=== PATIENT | male | born 1945 ===

== ENCOUNTER 2017-08-17 09:15 | Emergency (ER) | payer MEDICAID, MEDICARE, OTHER ==
[2017-08-17 09:22] VITALS: BP 120/89; PULSE 89; RESP 21; TEMP 97.5; O2SAT 97
--- NOTE | 2017-08-17 10:27 | ED PDOC ---
HPI: Skin/Bite Injury Time Seen by Provider: 08/17/17 09:47 Chief Complaint (Nursing): Abnormal Skin Integrity Chief Complaint (Provider): Rash History Per: Patient History/Exam Limitations: no limitations Additional Complaint(s): Pt reports rash behind R lower leg X 3 days, no itching, no pain, no trauma, no paresthesias. Denies fever. Past Medical History Reviewed: Nursing Documentation, Vital Signs Vital Signs: Last Vital Signs Temp 97.5 F L 08/17/17 09:22 Pulse 89 08/17/17 09:22 Resp 21 08/17/17 09:22 BP 120/89 08/17/17 09:22 Pulse Ox 97 08/17/17 09:22 - Medical History PMH: Diabetes - Family History Family History: States: Unknown Family Hx - Social History Current smoker - smoking cessation education provided: No Alcohol: None - Home Medications Home Medications: Ambulatory Orders Medication Instructions Recorded Hydrocortisone 1% Cream [Cortizone 1 apful TP BID PRN #1 tube 08/17/17 1% Cream] - Allergies Allergies/Adverse Reactions: Allergies Allergy/AdvReac Type Severity Reaction Status Date / Time No Known Allergies Allergy Verified 08/17/17 09:42 Review of Systems Constitutional: Negative for: Fever, Chills Musculoskeletal: Negative for: Leg Pain Skin: Positive for: Rash. Negative for: Lesions, Bruising Physical Exam - Reviewed Nursing Documentation Reviewed: Yes Vital Signs Reviewed: Yes - Physical Exam Appears: Positive for: Well, No Acute Distress Skin: Positive for: Normal Color, Warm, Dry Extremity: Positive for: Normal ROM, Capillary Refill (<2 sec), Other (5 cm macular rash posterior R lower leg, no vesicles, no lesions, no TTP, no crepitus , no induration, no discharge, no scaling). Negative for: Tenderness, Pedal Edema, Calf Tenderness, Deformity, Swelling - ECG O2 Sat by Pulse Oximetry: 97 Medical Decision Making Medical Decision Makin yo male with rash. - accucheck - Rx steroid cream Disposition - Clinical Impression Clinical Impression: Rash - Disposition Referrals: Todd Coffey MD [Family Provider] - Disposition: Routine/Home Disposition Time: 10:28 Condition: GOOD Prescriptions: Hydrocortisone 1% Cream [Cortizone 1% Cream] 1 apful TP BID PRN #1 tube PRN Reason: Rash Instructions: Skin Rash Forms: [facility] (Croatian) Print Language: CHINESE
== END 2017-08-17 10:33 | disposition home or self-care (01) ==
LOC: H.ER 09:15
DX: R21 Rash and other nonspecific skin eruption (principal); E11.9 Type 2 diabetes mellitus without complications